=== PATIENT | male | born 1955 | race African-American/Black ===

== ENCOUNTER 2018-08-06 12:59 | Emergency (ER) | payer OTHER ==
[~2018-08-06] VITALS: Ht 172.7 cm; Wt 81.8 kg
[2018-08-06] MEDS ORDERED: ATOR10TA84 PO (13:36)
[2018-08-06] MEDS ORDERED: TRAM50TA4 PO (13:36)
[2018-08-06 16:30] VITALS: BP 130/68
== END 2018-08-06 17:02 | disposition home or self-care (01) ==
LOC: EMS 12:59
DX: L84 Corns and callosities (principal); R03.0 Elevated blood-pressure reading, without diagnosis of hypertension; E78.00 Pure hypercholesterolemia, unspecified

== ENCOUNTER 2018-09-16 11:03 | Emergency (ER) | payer OTHER ==
[~2018-09-16] VITALS: Ht 175.3 cm; Wt 84.1 kg
[~2018-09-16 11:03] MED LIST: ATOR10TA84 PO; TRAM50TA4 PO
[2018-09-16] MEDS ORDERED: KETOROLAC TROMETHAMINE 60 MG/2 ML VIAL IM ONE (12:00)
[2018-09-16] MEDS ORDERED: METHOCARBAMOL 500 MG TABLET PO ONE (12:00)
[2018-09-16 13:30] VITALS: BP 138/84
== END 2018-09-16 14:00 | disposition home or self-care (01) ==
LOC: EMS 11:04
DX: S13.4XXA Sprain of ligaments of cervical spine, initial encounter (principal); R03.0 Elevated blood-pressure reading, without diagnosis of hypertension; E78.00 Pure hypercholesterolemia, unspecified; G89.29 Other chronic pain; M19.90 Unspecified osteoarthritis, unspecified site; V49.9XXA Car occupant (driver) (passenger) injured in unspecified traffic accident, initial encounter; Y93.89 Activity, other specified; Y92.89 Other specified places as the place of occurrence of the external cause; Y99.8 Other external cause status
CPT/HCPCS: 72125; 96372; 99284; J1885

== ENCOUNTER 2020-03-19 12:47 | Emergency (ER) | payer OTHER ==
[~2020-03-19] VITALS: Ht 175.3 cm; Wt 86.4 kg
[2020-03-19] MEDS ORDERED: GABA-1201 PO (13:00)
[2020-03-19] MEDS ORDERED: RIVA10 PO (13:00)
[2020-03-19 14:39] VITALS: BP 134/84
== END 2020-03-19 14:45 | disposition home or self-care (01) ==
LOC: EMS 12:48
DX: S63.501A Unspecified sprain of right wrist, initial encounter (principal); S53.401A Unspecified sprain of right elbow, initial encounter; S53.402A Unspecified sprain of left elbow, initial encounter; E78.00 Pure hypercholesterolemia, unspecified; F12.90 Cannabis use, unspecified, uncomplicated; W01.0XXA Fall on same level from slipping, tripping and stumbling without subsequent striking against object, initial encounter; Y93.89 Activity, other specified; Y92.89 Other specified places as the place of occurrence of the external cause; Y99.8 Other external cause status